=== PATIENT | female | born 1950 | race Caucasian/White ===

== ENCOUNTER 2017-02-18 08:50 | Day surgery (SDC) | payer MEDICARE, OTHER ==
[~2017-02-18] VITALS: Ht 154.9 cm; Wt 94.9 kg
[2017-02-18 09:34] VITALS: BP 154/58; PULSE 62; TEMP 98.3
[2017-02-18] MEDS ORDERED: LIORESAL 1010 MG/TAB PO (09:37)
[2017-02-18] MEDS ORDERED: PROAIR RES117 MCG/Ac IH (09:37)
[2017-02-18] MEDS ORDERED: COREG 3.123.125 MG/T PO (09:38)
[2017-02-18] MEDS ORDERED: CELEXA40 MG PO (09:38)
[2017-02-18] MEDS ORDERED: FERRO-TIME325 MG PO (09:38)
[2017-02-18] MEDS ORDERED: FLONASEALLERGY NS (09:39)
[2017-02-18] MEDS ORDERED: JANUVIA 100MG100 MG PO (09:39)
[2017-02-18] MEDS ORDERED: LANTUS SOLOS100 U/ML SQ ×2 (09:40→09:41)
[2017-02-18] MEDS ORDERED: CLARITIN LIQUI-10 MG PO (09:41)
[2017-02-18] MEDS ORDERED: SINGULAIR 110 MG/TAB PO (09:42)
[2017-02-18] MEDS ORDERED: COZAAR 25MG25 MG/TAB PO (09:42)
[2017-02-18] MEDS ORDERED: VOLTAREN GEL 1%1 TU TP (09:43)
[2017-02-18] MEDS ORDERED: VITAMIN D31000 I1 PO (09:44)
[2017-02-18] MEDS ORDERED: PROBIOTIC ACID1 EAC3 PO (09:44)
[2017-02-18] MEDS ORDERED: ZOCOR 40MG40 MG PO (09:44)
[2017-02-18] MEDS ORDERED: B COMPLEX #11 TA1 PO (09:45)
[2017-02-18] MEDS ORDERED: TURMERIC500 MG PO (09:45)
[2017-02-18] MEDS ORDERED: WOMEN'S DAILY F1 TAB PO (09:46)
[2017-02-18] MEDS ORDERED: CALCIUM CITRAT200 M2 PO (09:46)
[2017-02-18] MEDS ORDERED: ASPIRIN 81M81 MG/TA2 PO (09:47)
[2017-02-18 10:25] VITALS: BP 140/63; PULSE 64; TEMP 98
[2017-02-18 10:45] VITALS: BP 132/69; PULSE 61
[2017-02-18 11:00] VITALS: BP 133/56; PULSE 64
[2017-02-18 11:15] VITALS: BP 119/51; PULSE 66
[2017-02-18 11:30] VITALS: BP 137/61; PULSE 66
== END 2017-02-18 11:45 | disposition home or self-care (01) ==
LOC: SDCO 08:50
DX: Z12.11 Encounter for screening for malignant neoplasm of colon (principal); K57.30 Diverticulosis of large intestine without perforation or abscess without bleeding; E11.9 Type 2 diabetes mellitus without complications; J45.909 Unspecified asthma, uncomplicated; K21.9 Gastro-esophageal reflux disease without esophagitis; K58.9 Irritable bowel syndrome, unspecified; Z90.49 Acquired absence of other specified parts of digestive tract; Z90.710 Acquired absence of both cervix and uterus; Z80.0 Family history of malignant neoplasm of digestive organs; Z83.71 Family history of colonic polyps
CPT/HCPCS: OP; J2250; J3010; J7030